=== PATIENT | female | born 1940 | race Caucasian/White ===

== ENCOUNTER → 2019-10-20 10:42 | Outpatient (BNVA) | payer MEDICARE, OTHER, SELFPAY | PROVIDERS: Family Provider Family Medicine; PCP Family Medicine; Visit Provider Specialist | DX: R20.0 Anesthesia of skin (principal) | CPT/HCPCS: 99214 ==

== ENCOUNTER 2020-03-07 08:22 | Outpatient (CLI) | payer MEDICARE, OTHER, SELFPAY ==
[2020-03-07 09:58] LABS: Valproic Acid Level 73.5 ug/mL (50-100)
== END 2020-03-07 08:23 | disposition home or self-care (01) ==
LOC: LAB 08:25
PROVIDERS: PCP Family Medicine; Visit Provider Specialist
DX: Z79.899 Other long term (current) drug therapy (principal)
CPT/HCPCS: 80164

== ENCOUNTER → 2020-04-24 08:50 | Outpatient (BNVA) | payer MEDICARE, OTHER, SELFPAY | PROVIDERS: PCP Family Medicine; Visit Provider Specialist | DX: G43.909 Migraine, unspecified, not intractable, without status migrainosus (principal); R56.9 Unspecified convulsions; Z86.73 Personal history of transient ischemic attack (TIA), and cerebral infarction without residual deficits | CPT/HCPCS: 99213 ==

== ENCOUNTER 2020-04-25 12:39 | Outpatient (CLI) | payer MEDICARE, OTHER, SELFPAY ==
--- NOTE | 2020-04-25 13:00 | MR_ITS ---
WS: [id number] MRI HEAD WITH CONTRAST TECHNIQUE: Sagittal T1, T2 axial, T2 axial FLAIR, axial susceptibility weighted imaging, axial diffus ion weighted images, and coronal T2 images were obtained. Pre and post-T1 axial and post T1 coronal i mages. ADC and FSPGR images. CLINICAL INFORMATION: seizures/TIA COMPARISON: MRI FINDINGS: No evidence of restricted diffusion to suggest acute ischemia. Ventricular system and basal cisterns are patent. Mild to moderate small vessel changes. Moderate parenchymal volume loss. Prominent periva scular spaces in the basal ganglia. Normal vascular flow voids at the skull base. No extra-axial flui d collections. Fluid within the right maxillary sinus consistent with sinusitis. Paranasal sinuses are otherwise wel l aerated. Mild mucosal thickening in the right greater than left mastoid air cells. Normal optic chi asm and pituitary infundibulum. Mild to moderate symmetric atrophy involving the temporal lobes and h ippocampal formations. Normal cavernous sinuses and Meckel's cave.No abnormal intracranial parenchymal enhancement. Normal d ural venous sinuses. Visualized orbits are normal. MR/MR head wo/w con [id number] IMPRESSION: 1. No evidence of restricted diffusion to suggest acute ischemia. 2. [id number] small vessel changes with moderate parenchymal volume loss . Small vessel changes appear stable since 2018. Minimal progression of the par enchymal volume loss. 3. Mild to moderate symmetric atrophy involving the temporal lobes and hippoca mpal formations. No signal abnormalities in the mesial temporal lobes. 4. No hemosiderin on susceptibly weighted images. 5. No abnormal gadolinium enhancement. 6. Right maxillary sinusitis. 7. No hemosiderin on susceptibly weighted images.
[2020-04-25 13:29] LABS: Blood Urea Nitrogen 14 mg/dL (8-23)
== END 2020-04-25 12:40 | disposition home or self-care (01) ==
LOC: RADSHAW 12:42
PROVIDERS: PCP Family Medicine; Visit Provider Specialist
DX: R56.9 Unspecified convulsions (principal); G45.9 Transient cerebral ischemic attack, unspecified; J32.0 Chronic maxillary sinusitis
CPT/HCPCS: 70553; 82565; 84520; A9579

== ENCOUNTER → 2020-10-25 08:11 | Outpatient (BNVA) | payer MEDICARE, OTHER, SELFPAY | PROVIDERS: PCP Family Medicine; Visit Provider Specialist | DX: R56.9 Unspecified convulsions (principal); F03.90 Unspecified dementia, unspecified severity, without behavioral disturbance, psychotic disturbance, mood disturbance, and anxiety | CPT/HCPCS: 96116; 99214 ==

== ENCOUNTER → 2021-09-25 09:42 | Outpatient (BNVA) | payer MEDICARE, OTHER, SELFPAY | PROVIDERS: PCP Family Medicine; Visit Provider Specialist | DX: R20.0 Anesthesia of skin (principal) | CPT/HCPCS: 99212 ==

== ENCOUNTER 2025-08-08 06:30 | Emergency (ER) | payer MEDICARE, SELFPAY ==
[2025-08-08 06:35] VITALS: BMI 25.6
--- NOTE | 2025-08-08 06:39 | CTR_ITS ---
PROCEDURE INFORMATION: Exam: CT Head Without Contrast Exam date and time: 08/08/2025 6:41 AM Age: 85 years old Clinical indication: Stroke-like symptoms; Left upper extremity and left lower extremity numbness/paresthesia; Additional info: Patient awoke this morning with numbness to left side of body. History of TIA. Last known well time of 2200 hours yesterday. TECHNIQUE: Imaging protocol: Computed tomography of the head without contrast. Radiation optimization: All CT scans at this facility use at least one of these dose optimization techniques: automated exposure control; mA and/or kV adjustment per patient size (includes targeted exams where dose is matched to clinical indication); or iterative reconstruction. Other technique: STROKE PROTOCOL was implemented. COMPARISON: MR head wo/w con [id number] 04/25/2020 1:18 PM RADIATION DOSE METRICS: Total DLP (mGy-cm): 1065.88 FINDINGS: Brain: Prominence of the sulci consistent with diffuse atrophy. No mass effect or midline shift. Periventricular and subcortical white matter low-attenuation consistent with chronic small vessel ischemic changes. Left basal ganglia and left thalamus small remote lacunar infarcts. No evidence of acute intracranial hemorrhage. Cerebral ventricles: Ventricular prominence proportional to sulci. No hydrocephalus. Paranasal sinuses: No significant or acute abnormality. No air-fluid levels. Mastoid air cells: No acute abnormality. No significant mastoid effusion. Bones: No acute osseous abnormality. No acute fracture. Soft tissues: No significant soft tissue abnormalities. CT/CT head thrombolytic [id number] IMPRESSION: Diffuse atrophy and chronic/remote ischemic changes without evidence of superimposed acute infarct, hemorrhage or mass-effect at this time. ASSESSMENT: ASPECTS ([place] Stroke Program Early CT Score) is 10.
--- NOTE | 2025-08-08 06:39 | ECG_ITS ---
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 Measurements Intervals [place] Rate: 75 P: 75 [place]: 141 QRS: -17 QRSD: 87 T: 61 QT: 367 QTc: 412 Interpretive Statements SINUS RHYTHM POSSIBLE LEFT ATRIAL ENLARGEMENT [-0.1mV P-WAVE IN V1/V2] Compared to ECG 06/01/2018 11:27:26 No significant changes Electronically Signed On 08-09-2025 21:37:28 SOUND TRUCK OPERATOR by Guerrero Caputo M.D. [email or web address]
--- NOTE | 2025-08-08 06:39 | W.ED.NEUROSD ---
HPI - Neuro Symptoms/Deficit General: Chief Complaint: Neuro Symptoms/Deficit Stated Complaint: left side is numb Time Seen by Provider: 08/08/25 06:37 Source: patient Mode of arrival: ambulatory Limitations: no limitations History of Present Illness: 85-year-old female states she had went to bed last night at 2200 states and when she woke up this morning she felt like she is having numbness all down her left side of her body. She denied having any weakness to me denies any slurred speech states that its improved slightly. Denies any headache denies any fevers denies any worsening improved factors. Related Data Home Medications ?Medication ?Instructions ?Recorded ?Confirmed alprazolam 0.25 mg tablet (Xanax) 0.125 mg PO .prn 10/20/19 09/25/21 aspirin 81 mg tablet,delayed 81 mg PO DAILY 10/20/19 09/25/21 release (Aspir-) calcium 600 mg (as 1 tab PO DAILY 10/20/19 09/25/21 carbonate)-vitamin D3 5 mcg (200 unit) tablet (Calcium 600 + D(3)) multivitamin 1 cap PO DAILY 10/20/19 09/25/21 omega-3 fatty acids 1,000 mg 1,000 mg PO DAILY 10/20/19 09/25/21 capsule (Fish Oil Concentrate) simvastatin 10 mg tablet 10 mg PO DAILY 10/20/19 09/25/21 vitamin B complex (Complex B-100 1 tab PO DAILY 10/20/19 09/25/21 tablet,extended release) Previous Rx's ?Medication ?Instructions ?Recorded gabapentin 600 mg tablet See Rx Instructions .Route 12/14/21 .COMPLEX #90 tabs Allergies Allergy/AdvReac Type Severity Reaction Status Date / Time No Known Allergies Allergy Verified 09/25/21 09:59 PFS ED PFSH: Family History Other CAD (coronary artery disease) Diabetes Hypertension Denies family history of Cancer Stroke Social History Smoking and tobacco/nicotine status: never used tobacco/nicotine Alcohol intake: never Substance/Drug Use: never NIH stroke score NIHSS: Level Of Consciousness - 1a: 0 Level Of Consciousness Questions - 1b: Both Correct Level Of Consciousness Commands - 1c: Both Correct Best Gaze - 2: Normal Visual Huggins - 3: No Visual Loss Facial Palsy - 4: Normal Motor Arm Right - 5: No Drift Motor Arm Left - 5: No Drift Motor Leg Right - 6: No Drift Motor Leg Left - 6: No Drift Limb Ataxia - 7: Absent Sensory - 8: Normal Best Language - 9: No Aphasia Dysarthia - 10: Normal Extinction And Inattention - 11: 0 Score: Total Score: 0 Physical Exam Const: COMMON NORMALS: patient oriented x3 HENMT: COMMON NORMALS: normocephalic and atraumatic HEAD & SCALP: normocephalic and atraumatic Neck/C-Spine: COMMON NORMALS: full ROM and supple Chest: COMMONS NORMALS: normal inspection of the chest Resp: COMMON NORMALS: normal respiratory effort, No retractions, No use of accessory muscles and clear to auscultation bilaterally AUSCULTATION: clear to auscultation bilaterally Cardio: COMMON NORMALS: regular rate, regular rhythm and No murmurs present (Cardio) RATE: regular rate RHYTHM: regular rhythm GI: COMMON NORMALS: Normal to inspection, nondistended, normoactive bowel sounds present, Soft to palpation, non-tender and no masses PALPATION: Yes Soft to palpation Extremity: COMMON NORMALS: normal to inspection and full ROM Neuro: COMMON NORMALS: patient oriented x3, moves all extremities and no focal motor deficits CRANIAL NERVES: Yes CN normal except as noted SPEECH: speech normal GAIT: Yes Normal gait present MOTOR EXAM: 5/5 motor strength present throughout Psych: COMMON NORMALS: mental status grossly normal, Normal thought process present and cooperative THOUGHT PROCESS: Normal thought process present Skin: COMMON NORMALS: no rashes or lesions noted and no wounds GENERAL SKIN EXAM: no rashes or lesions noted Course Vital Signs: Vital signs: Vital Signs Temperature 97.5 F L 08/08/25 06:42 Pulse Rate 76 08/08/25 07:37 Respiratory Rate 18 08/08/25 07:19 Blood Pressure 185/73 08/08/25 07:37 Pulse Oximetry 98 08/08/25 07:37 Oxygen Delivery Me thod Room Air 08/08/25 07:19 MDM - Neuro Symptoms/Deficit Medical Decision Making 85-year-old female presenting here with some paresthesias to her left side on exam has no decreased sensation. Differential includes TIA, CVA, hemorrhage. Her head CT here is normal shows no signs of hemorrhage her NIH here was 0. Did have some hypertension here does have a history of hypertension takes losartan at home. I did offer her admission for stroke rule out she states she feels improved and does not want to be admitted this time. I informed her she needs to follow-up her PCP in 3 to 5 days if she has any worsening symptoms she is to return she understands agrees to plan. Labs showed no significant abnormality. EKG interpreted by me at 0654 normal sinus rhythm heart rate [address] elevation QRS 87 QTc 396 Medical Records I reviewed the patient's medical records. Lab Data I reviewed the patient's lab results. 08/08/25 06:50 08/08/25 06:[address] 08/08/25 06:39 IMPRESSION: Diffuse atrophy and chronic/remote ischemic changes without evidence of superimposed acute infarct, hemorrhage or mass-effect at this time. ASSESSMENT: ASPECTS ([place] Stroke Program Early CT Score) is 10. ADDENDUM: 08/08/25657 Results were discussed with DARREN Brower at 6:57 AM GALLERY OR MUSEUM CURATOR 08/08/2025. Laboratory Results WBC 9.42 10^3/uL (3.29-11.43) 08/08/25 06:50 RBC 4.90 10^6/uL (3.85-5.65) 08/08/25 06:50 Hgb 14.00 g/dL (11.27-16.99) 08/08/25 06:50 Hct 42.8 % (36-47) 08/08/25 06:50 MCV 87.3 fl (85-98) 08/08/25 06:50 MCH 28.6 pg (27-33) 08/08/25 06:50 MCHC 32.7 g/dL (30-55) 08/08/25 06:50 RDW 13.1 % (12.1-15.1) 08/08/25 06:50 Plt Count 306 10^3/cmm (157-399) 08/08/25 06:50 MPV 10.5 fL (7.4-10.4) H 08/08/25 06:50 Neut % (Auto) 42.4 % 08/08/25 06:50 Lymph % (Auto) 46.6 % 08/08/25 06:50 Morrill % (Auto) 6.7 % 08/08/25 06:50 Eos % (Auto) 3.7 % 08/08/25 06:50 Baso % (Auto) 0.5 % 08/08/25 06:50 Neut # (Auto) 3.99 10^3/uL (1.8-7.7) 08/08/25 06:50 Lymph # (Auto) 4.4 10^3/uL (0.8-4.8) 08/08/25 06:50 Morrill # (Auto) 0.6 10^3/uL (0.2-0.9) 08/08/25 06:50 Eos # (Auto) 0.4 10^3/uL (0.0-0.8) 08/08/25 06:50 Baso # (Auto) 0.1 10^3/uL (0.0-0.1) 08/08/25 06:50 Nucleated RBC % (auto) 0 % 08/08/25 06:50 Nucleated RBCs # 0.0 /100WBC 08/08/25 06:50 PT 13.30 SECONDS (12.1-14.9) 08/08/25 06:50 INR 0.94 (0.8-1.2) 08/08/25 06:50 APTT 28.1 SECONDS (23.9-36.7) 08/08/25 06:50 Sodium 140 mmol/L (136-145) 08/08/25 06:50 Potassium 3.7 mmol/L (3.5-5.1) 08/08/25 06:50 Chloride 101 mmol/L (98-107) 08/08/25 06:50 Carbon Dioxide 30 mmol/L (22-29) H 08/08/25 06:50 Anion Gap 12.7 (5-19) 08/08/25 06:50 BUN 11 mg/dL (8-23) 08/08/25 06:50 Creatinine 0.7 mg/dL (0.5-0.9) 08/08/25 06:50 GFR Calculation Not Reportable 08/08/25 06:50 Glucose 103 mg/dL (65-115) 08/08/25 06:50 POC Glucose 95 mg/dL (70-110) 08/08/25 06:47 Calculated Osmolality 290 mOsm/kg (285-295) 08/08/25 06:50 Calcium 9.8 mg/dL (8.5-10.5) 08/08/25 06:50 Total Bilirubin 0.6 mg/dL (0.15-1.2) 08/08/25 06:50 AST 19 U/L (0-32) 08/08/25 06:50 ALT 10 U/L (0-33) 08/08/25 06:50 Alkaline Phosphatase 81 U/L (35-105) 08/08/25 06:50 Total Protein 8.0 g/dL (6.6-8.7) 08/08/25 06:50 Albumin 4.4 g/dL (3.5-5.2) 08/08/25 06:50 Globulin 3.6 g/dL (1.3-4.6) 08/08/25 06:50 Amorphous Sediment Not Reportable 08/08/25 07:10 Urine Opiates Screen Negative ng/mL (Negative) 08/08/25 07:10 Ur Barbiturates Screen Negative ng/mL (Negative) 08/08/25 07:10 Ur Phencyclidine Scrn Negative ng/mL (Negative) 08/08/25 07:10 Ur Amphetamines Screen Negative ng/mL (Negative) 08/08/25 07:10 U Benzodiazepines Scrn Negative ng/mL (Negative) 08/08/25 07:10 Urine Cocaine Screen Negative ng/mL (Negative) 08/08/25 07:10 U Marijuana (THC) Screen Negative ng/mL (Negative) 08/08/25 07:10 All radiology interpretation(s) finalized by discharge EKG Data EKG 1: I personally reviewed and interpreted this EKG as follows: EKG interpretation date: 08/08/25 EKG interpretation time: 06:54 Interpretation: EKG interpreted by me at 0654 normal sinus rhythm heart rate [address] elevation QRS 87 QTc 396 Discharge Plan Discharge Patient Disposition: Home Clinical Impression: Paresthesias Condition: Stable Prescriptions: No Action simvastatin 10 mg tablet 10 mg PO DAILY multivitamin Capsule 1 cap PO DAILY calcium carbonate-vitamin D3 [Calcium 600 + D(3)] 600 mg(1,500mg) -200 unit tablet 1 tab PO DAILY omega-3 fatty acids [Fish Oil Concentrate] 1,000 mg capsule 1,000 mg PO DAILY aspirin [Aspir-81] 81 mg tablet,delayed release (DR/EC) 81 mg PO DAILY Complex B-100 Tablet Extended Release 1 tab PO DAILY alprazolam [Xanax] 0.25 mg tablet 0.125 mg PO .prn gabapentin 600 mg tablet See Rx Instructions .ROUTE .COMPLEX Qty: 90 0RF Dose Instruction: TAKE 1 TABLET BY MOUTH THREE TIMES DAILY Rx Instructions: TAKE 1 TABLET BY MOUTH THREE TIMES DAILY Discharge Orders: Discharge ED (Routine); Ordered 08/08/25 Ordered By: Darren Panda Referrals: Jose Sanchez MD [Primary Care Provider, Family Practice] - 4-7 days Discharge Diet: Advance as tolerated Discharge Activity: Resume usual activity Patient Instructions: Paresthesia (ED) Print Language: Persian Coding Level of Care Code ED Mobile Lab Technician for Jj Danielle
[2025-08-08 06:42] VITALS: BP 203/84; PULSE 85; RESP 18; TEMP 36.4; O2SAT 97
--- OUTSIDE RECORDS SUMMARY | 2025-08-08 06:47 | XMS_ITS | Data Portability ---
Author Organization [facility], [facility], [facility] Address [address] [address] Care Team Providers Care Department Chair Name Role Phone LENCHO SANCHEZ Primary Care Provider Unavailabl e Assessment No assessment recorded. Plan of Treatment Reminders Order Date Submit Date Provider Last Modified By Organization Details Last Modified Time Details Appointments RECHECK 15 2025 09:00A Ching Sanchez MD Not available Not available Not available Lab None recorded . Referral None recorded . Procedures arthroce ntesis, aspirati on and/or injectio n, major joint or bursa (PROC) [email or web address] [facility], [address] [place] [address], [id number], 05/30/2025 16:36:05 arthroce ntesis, aspirati on and/or injectio n, major joint or bursa (PROC) [id number] [facility], [address] [place] [address], [id number], 04/02/2025 03:53:36 Surgeries None recorded . Imaging None recorded . Medication Orders betameth asone acetate and sodium phos 6 mg/mL suspensi on for injectio n 2024 025 [email or web address] Not available 07/29/2025 15:02:01 fluticas one propiona te 50 mcg/actu ation nasal spray,thompson spension 2024 025 [facility], [address] [place] [address], [address], 02/24/2025 14:18:46 Medrol (Terell) 4 mg tablets in a dose pack [address], [address], 05/30/2025 12:04:40 betameth asone acetate and sodium phos 6 mg/mL suspensi on for injectio n 2024 025 [email or web address] Not available 07/29/2025 15:02:01 losartan 50 mg tablet [address], [address], 05/20/2025 10:18:23 simvasta tin 10 mg tablet [address], [address], 07/13/2025 12:12:14 Patient TargetsNo targets recorded. Patient InstructionsNo instructions recorded. Reason for Referral None Reported. Results Created Date Observation Date Name Description Value Unit Range Abnormal Flag Note LastModifiedBy Organization Detail LastModifiedTime 01/20/2001/19/2025 CBC WBC 6.7 x10 4.0-10 .5 Not Available [facility] [address], [place], [address], 01/19/2025 10:55:30 01/20/20 25 01/19/2025 CBC RBC 4.80 x10 3.50-5 .50 Not Available [facility] [address], [place], [address], 01/19/2025 10:55:30 01/20/20 25 01/19/2025 CBC HGB 14.1 g/dL 12.0-1 6.0 Not Available [facility] [address], [place], [address], 01/19/2025 10:55:30 01/20/20 25 01/19/2025 CBC HCT 43.6 % 37.0-4 7.0 Not Available [facility] [address] [facility] [address], [place], [address], 01/19/2025 10:55:30 01/20/20 25 01/19/2025 CBC MCV 90.9 fL 80.0-9 9.9 Not Available [facility] [address] [facility] [address], [place], [address], 01/19/2025 10:55:30 01/20/20 25 01/19/2025 CBC MCH 29.3 pg 27.0-3 2.0 Not Available [facility] [address] [facility] [address], [place], [address], 01/19/2025 10:55:30 01/20/2001/19/2025 CBC MCHC 32.2 g/dL 32.0-3 6.0 Not Available [facility] [address] [facility] [address], [place], [address], 01/19/2025 10:55:30 01/20/2001/19/2025 CBC RDW 14.0 % 11.5-1 4.5 Not Available [facility] [address] [facility] [address], [place], [address], 01/19/2025 10:55:30 01/20/20 25 01/19/2025 CBC plt 240.9 x10 140.0- 451.0 Not Available [facility] [address] [facility] [address], [place], [address], 01/19/2025 10:55:30 01/20/20 25 01/19/2025 CBC lymphocytes % 41.6 % 20.0-5 0.0 Not Available [facility] [address] [facility] [address], [place], [address], 01/19/2025 10:55:30 01/20/20 25 01/19/2025 CBC granulcytes % 46.5 % 30.0-7 0.0 Not Available [facility] [address] [facility] [address], [place], [address], 01/19/2025 10:55:30 01/20/20 25 01/19/2025 CBC monocytes % 7.5 % 2.0-16 .0 Not Available [facility] [address] [facility] [address], [place], [address], 01/19/2025 10:55:30 01/20/20 25 01/19/2025 CBC granulcytes# 3.1 x10 Not Sinai [facility] [address] [facility] [address], [place], [address], 01/19/2025 10:55:30 01/20/20 25 01/19/2025 CBC lymphocytes # 2.8 x10 Not Available [facility] [address] [facility] [address], [place], [address], 01/19/2025 10:55:30 01/20/20 25 01/19/2025 CBC monocytes # 0.5 x10 Not Avai lable [facility] [address] [address], [place], [address], 01/19/2025 10:55:30 01/20/20 25 01/19/2025 CMP (FEMA LE) glucose 94.0 mg/dL 60.0-9 9.0 Not Available [facility] [address] [address], [place], [address], 01/19/2025 12:07:32 01/20/2001/19/2025 CMP (FEMA LE) BUN (blood urea nitrogen) 20.0 mg/dL 10.0-2 6.0 Not Available [facility] [address] [facility] [address], [place], [address], 01/19/2025 12:07:32 01/20/2001/19/2025 CMP (FEMA LE) creatinine (serum) 0.8 mg/dL 0.4-1. 5 Not Available [facility] [address] [facility], [place], [address], 01/19/2025 12:07:32 01/20/2001/19/2025 CMP (FEMA LE) BUN/creatini ne ratio 25.00 ratio Not Available [facility] [address] [facility], [place], [address], 01/19/2025 12:07:32 01/20/2001/19/2025 CMP (FEMA LE) eGFR calculated 72.6 Not Available [facility] [address] [facility], [place], [address], 01/19/2025 12:07:32 01/20/2001/19/2025 CMP (FEMA LE) total protein 7.5 g/dL 6.0-8. 5 Not Available [facility] [address] [facility] 1, [place], [address], 01/19/2025 12:07:32 01/20/2001/19/2025 CMP (FEMA LE) total bilirubin 0.8 mg/dL 0.2-1. 3 Not Available [facility] [address] [facility], [place], [address], 01/19/2025 12:07:32 01/20/2001/1901/19/2025 CMP (FEMA LE) albumin 4.4 g/dL 3.5-5. 5 Not Available [facility] [address] [place] [facility], [place], [address], 01/19/2025 12:07:32 01/20/20 25 01/19/2025 CMP (FEMA LE) globulin 3.1 calc Not Available [facility] [address] [facility] 1, [place], [address], 01/19/2025 12:07:32 01/20/20 25 01/19/2025 CMP (FEMA LE) AST (SGOT) 24.0 U/L 0.0-46 .0 Not Available [facility] [address] [facility] 1, [place], [address], 01/19/2025 12:07:32 01/20/20 25 01/19/2025 CMP (FEMA LE) altv (SGPT) 20.0 U/L 13.0-6 9.0 normal Not Available [facility] [address] [facility], [place], [address], 01/19/2025 12:07:32 01/20/20 25 01/19/2025 CMP (FEMA LE) A/G ratio 1.4 ratio Not Available [facility] [address] [facility] 1, [place], [address], 01/19/2025 12:07:32 01/20/20 25 01/19/2025 CMP (FEMA LE) ALP phos 55.0 U/L 30.0-1 40.0 normal Not Available [facility] [address], [place], [address], 01/19/2025 12:07:32 01/20/20 25 01/19/2025 CMP (FEMA LE) calcium 9.4 mg/dL 8.4-10 .5 Not Available [facility] [address] [facility] [address], [place], [address], 01/19/2025 12:07:32 01/20/2001/19/2025 CMP (FEMA LE) sodium 140.0 mmol/ L 136.0- 145.0 Not Available [facility] [address] [place] [facility], [place], [address], 01/19/2025 12:07:32 01/20/2001/19/2025 CMP (FEMA LE) potassium 4.1 mmol/ L 3.5-5. 1 Not Available [facility] [address] [place] [address], [place], [address], 01/19/2025 12:07:32 01/20/2001/19/2025 CMP (FEMA LE) chloride 103.0 mmol/ L 98.0-1 10.0 normal Not Available [facility] [address] [place] [address], [place], [address], 01/19/2025 12:07:32 01/20/2001/19/2025 CMP (FEMA LE) C02 30.0 mmol/ L 22.0-3 1.0 Not Available [facility] [address] [place] [facility], [place], [address], 01/19/2025 12:07:32 01/20/2001/19/2025 CMP (FEMA LE) anion gap 7.0 calc Not Available [facility] [address] [place] [facility], [place], [address], 01/19/2025 12:07:32 01/20/2001/19/2025 CMP (FEMA LE) osmolality 291.4 calc Not Available [facility] [address] [place] [address], [place], [address], 01/19/2025 12:07:32 01/20/20 25 01/19/2025 LIPID PROFI LE (FEMA LE) cholesterol 171.0 mg/dL 0.0-20 0.0 Not Available [facility] [address] [facility] 1, [place], [address], 01/19/2025 12:07:44 01/20/20 25 01/19/2025 LIPID PROFI LE (FEMA LE) trig 118.0 mg/dL 0.0-15 0.0 Not Available [facility] [address] [facility] 1, [place], [address], 01/19/2025 12:07:44 01/20/20 25 01/19/2025 LIPID PROFI LE (FEMA LE) HDL - direct 52.0 mg/dL >40.0 Not Available [facility] [address] [facility] 1, [place], [address], 01/19/2025 12:07:44 01/20/20 25 01/19/2025 LIPID PROFI LE (FEMA LE) VLDL - direct 23.6 mg/dL Not Available [facility] [address] [address], [place], [address], 01/19/2025 12:07:44 01/20/20 25 01/19/2025 LIPID PROFI LE (FEMA LE) LDL - direct 95.4 mg/dL 0.0-13 0.0 Not Available [facility] [address] [facility] 1, [place], [address], 01/19/2025 12:07:44 01/20/2001/19/2025 TSH TSH 1.36 uIU/m L 0.49-3 .82 normal Not Available [facility] [address] [address], [place], [address], 01/19/2025 12:13:10 Result Notes None recorded. Problems Name Problem SNOMED Code Status Onset Date Resolution Date Notes Provider Name and Address Organization Details Recorded Time Osteopenia 966902434 Active 2021 Osteope sandra; Hips (BMD 2001).; 022 1:17PM by Mahesh Montalvo, Office Visit; Promote d; acuity set as *; MAHESH mccollum [facility] 5 12:50:58 Hyperlipid emia 61174929 Active 2022 [facility] 12:51:05 Labyrinthi tis 30872883 Active 2022 [facility] 5 12:50:58 Generalize d anxiety disorder 01830723 Active 2023 [facility] 12:50:58 Actinic keratosis 375074473 Active 2023 MAHESH MONTALVO [facility] 5 12:50:58 Essential hypertensi on 05025054 Active 2024 [facility] 5 12:50:58 Bursitis of right shoulder 7064860721963 07 Active 2024 Lencho Sanchez MD [address] [place] [address], [phone], [facility] 5 15:44:38 Dysfunctio n of right eustachian tube 1185743864812 101 Active 2024 Rubin Lockett MD [address] [place] [address], [phone], [facility] 5 13:58:37 Problem Notes None recorded. Procedures Surgical History Date Name Laterality Status Provider Name and Address Organization Details Recorded Time 5 Joint Inj Beta-shoulde r, hip, knee completed Lencho Sanchez MD [address] [place], [address], [facility] 05/30/2025 12:33:15 5 Cerumen Removal-Inst rumentation completed BRAYDON OSUNA [address] [place] [address], [phone], [facility] 02/23/2025 16:19:42 5 Joint Inj Beta-shoulde r, hip, knee completed Lencho Sanchez MD [address] [place], [address], [facility] 01/26/2025 15:45:27 Imaging Results None recorded. Procedure Notes None recorded. Medical Equipment None Reported. Allergies No known drug allergies Medications Name Sig Start Date Stop Date Status Note LastModified by Organization Details LastModified Time losartan 50 mg tablet TAKE 1 TABLET BY MOUTH EVERY DAY active Not Available Not Available No t Available simvastat in 10 mg tablet TAKE 1 TABLET BY MOUTH EVERY DAY active Not Available Not Available No t Available betametha sone acetate and sodium phos 6 mg/mL suspensio n for injection Take 6 mg every day by injectio n route for 1 day. 07/29 completed Not Available Not Available Not Available alprazola m 0.25 mg tablet take 1/2 tablet BY MOUTH THREE TIMES DAILY NEEDED active Not Available Not Available No t Available methylpre dnisolone 4 mg tablets in a dose pack Take as directed on package for 6 days 05/30 completed Not Available Not Available Not Available losartan 100 mg tablet Take 1 tablet every day by oral route for 90 days. 2024 active Not Available Not Available Not Avai lable fluticaso ne propionat e 50 mcg/actua tion nasal spray,adriane pension instill ONE SPRAY IN EACH NOSTRIL EVERY DAY active Not Available Not Available No t Available loratadin e active Not Available Not Available Not Available Aspirin EC daily 2017 active Recorded 11/14/19 19 9:39AM by Janel Chandler LPN, Office Visit; Refill Quantity : 30; Tablet; Not Available Not Available Not Available alprazola m three times daily, as needed 07/23 completed Recorded 07/09/20 21 10:02AM by Lencho Sanchez MD, Office Visit; Refill Quantity : 45; Tablet; Not Available Not Available Not Available Centrum Silver daily active 0; Recorded 07/22/20 22 1:17PM by Mahesh Montalvo, Office Visit; Not Available Not Available Not Available gabapenti n three times daily 07/23 completed weaning off, currentl y at 1/2 tablet BID; Recorded 01/08/20 22 10:02AM by Debbie andre, Office Visit; Refill Quantity : 90; Tablet; Not Available Not Available Not Available Vitamin B-Complex QD active Recorded 12/31/19 07 9:57AM by Edith Thorpe, RN, Office Visit; Refill Quantity : 0; Not Available Not Available Not Available Calcium+D BID active Recorded 12/31/19 07 9:57AM by Edith Thorpe, RN, Office Visit; Refill Quantity : 0; Not Available Not Available Not Available [place]-3 Fish Oil active Recorded 11/22/19 09 1:35PM by Edith Thorpe, RN, Office Visit; Not Available Not Available Not Available Vitals Date Recorded Body height Body mass index (BMI) Body weight Heart rate Oxygen saturation Body temperature Systolic And Diastolic Provider Name and Address Organization Details Last Updated DateTime 5 159.39 cm 24.5 kg/m2 85597.1 5 g 80 /min 96 % 98.2 [degF] 152/68 mm[Hg] DEBBIE PORRAS [facility] 5 14:56:00 Date Recorded Body height Body mass index (BMI) Body weight Oxygen saturation Heart rate Body temperature Systolic And Diastolic Provider Name and Address Organization Details Last Updated DateTime 5 159.39 cm 25 kg/m2 42444.6 3 g 96 % 100 /min 98.5 [degF] 142/56 mm[Hg] Alison Cruz [facility] 5 10:36:00 Date Recorded Body height Body mass index (BMI) Body weight Oxygen saturation Heart rate Respiratory rate Body temperature Systolic And Diastolic Provider Name and Address Organization Details Last Updated DateTime 5 159.39 cm 25 kg/m2 81931.9 3 g 96 % 88 /min 16 /min 98.9 [degF] 150/80 mm[Hg] Cecy Burns [facility] 5 13:31:03 Date Recorded Body height Body mass index (BMI) Body weight Oxygen saturation Heart rate Systolic And Diastolic Provider Name and Address Organization Details Last Updated DateTime 5 159.39 cm 25 kg/m2 72254.9 3 g 93 % 86 /min 132/60 mm[Hg] MAHESH MONTALVO [facility] 5 11:55:28 Date Recorded Body height Body mass index (BMI) Body weight Heart rate Systolic And Diastolic Systolic And Diastolic Provider Name and Address Organization Details Last Updated DateTime 5 159.39 cm 25.2 kg/m2 01185.5 2 g 80 /min 170/80 mm[Hg] 180/88 mm[Hg] DEBBIE PORRAS [facility] 5 15:05:20 Social History Question Answer Notes LastModified by [employer] Details LastModified Time Tobacco Smoking Status Never Smoker MAHESH mccollum [facility] 01/21/2023 15:54:29 What Was The Date Of Your Most Recent Tobacco Screening? 07/29/2025 [email or web address] Information not available 07/29/2025 Sex: Unknown Functional Status Question Answer Note LastModified by [employer] Details LastModified Time Do you use any illicit or recreational drugs? No [email or web address] Information not available 01/21/2023 What is your level of alcohol consumption? None [email or web address] Information not available 01/21/2023 Mental Status None recorded. Family History Relationship Description Onset Age of this Age Resolved Age Notes LastModified by Organization Details LastModified Time Father Heart disease [email or web address] Not available 01/26 15:00:43 Medical History No medical history recorded. Gynecological HistoryNo gynecological history recorded. Obstetrics History GPAL:G 0 P 0 0 0 0 Immunizations Vaccine Type Date Status Note Provider Nam e and Address Organization Details Recorded Time Influenza, adjuvanted, quadrivalent, PF 3 completed Not Available [facility] 07/29/2025 14:34:09 COVID-19, mRNA, LNP-S, PF, kashif-sucrose, 30 mcg/0.3 mL 3 completed Not Available [facility] 07/29/2025 14:34:09 Influenza, high-dose, trivalent, PF 4 completed Not Available [facility] 07/29/2025 14:34:09 COVID-19, mRNA, LNP-S, PF, kashif-sucrose, 30 mcg/0.3 mL 4 completed Not Available [facility] 07/29/2025 14:34:09 COVID-19, mRNA, LNP-S, PF, kashif-sucrose, 30 mcg/0.3 mL 5 completed Not Available [facility] 07/29/2025 14:34:09 Influenza, split virus, trivalent, PF 5 completed Not Available [facility] 07/29/2025 14:34:09 Influenza, high-dose, quadrivalent, PF 2 [facility] 01/21/2023 15:53:42 COVID-19, mRNA, LNP-S, PF, 30 mcg/0.3 mL dose 1 completed [facility] 01/21/2023 15:53:42 COVID-19, mRNA, LNP-S, PF, 30 mcg/0.3 mL dose 1 completed MAHESH mccollum [facility] 01/21/2023 15:53:42 COVID-19, mRNA, LNP-S, PF, 30 mcg/0.3 mL dose 1 completed MAHESH MONTALVO null, [facility] 01/21/2023 15:53:42 COVID-19, mRNA, LNP-S, PF, 30 mcg/0.3 mL dose, kashif-sucrose 2 completed MAHESH MONTALVO null, [facility] 01/21/2023 15:53:42 COVID-19, mRNA, LNP-S, bivalent, PF, 30 mcg/0.3 mL dose 2 completed MAHESH MONTALVO null, [facility] 01/21/2023 15:53:42 Pneumococcal conjugate PCV 13 0 completed MAHESH MONTALVO null, [facility] 01/21/2023 15:53:42 Influenza, high-dose, trivalent, PF 7 completed MAHESH MONTALVO null, [facility] 01/21/2023 15:53:42 Influenza, high-dose, trivalent, PF 6 completed MAHESH MONTALVO null, [facility] 01/21/2023 15:53:42 Influenza, high-dose, trivalent, PF 9 completed MAHESH MONTALVO null, [facility] 01/21/2023 15:53:42 Influenza, high-dose, trivalent, PF 8 completed MAHESH MONTALVO null, [facility] 01/21/2023 15:53:42 Influenza, split virus, trivalent, preservative 4 completed MAHESH MONTALVO null, [facility] 01/21/2023 15:53:42 Influenza, split virus, trivalent, PF 5 completed MAHESH MONTALVO null, [facility] 01/21/2023 15:53:42 Influenza, split virus, quadrivalent, PF 1 completed MAHESH MONTALVO [facility] 01/21/2023 15:53:42 Influenza, split virus, trivalent, preservative 2 completed Not Available [facility] 03/22/2023 02:17:51 Influenza, split virus, trivalent, preservative 1 completed Not Available [facility] 03/22/2023 02:17:51 Past Encounters Encounter ID Performer Location Encounter Start Date Encounter Closed Date Diagnosis/Indication Diagnosis SNOMED-CT Code Diagnosis ICD10 Code Diagnosis IMO Codes Diagnosis Note [id number] Lencho Sanchez MD [facility] [address] [place] [address] 5 01/21/2023 15:47:09 01/21/2023 18:39:18 Hyperlipidemia 24524349 E78.5 Labyrinthitis 54303399 H 83.03 [id number] Lencho Sanchez MD [facility] [address] [place] [address] 5 07/23/2023 09:25:22 07/23/2023 13:01:41 Labyrinthitis 75778648 H83.03 doing welll with this. Hyperlipidemia 56548482 E78.5 [id number] Lencho Sanchez MD [facility] [address] [place] [address] 5 01/23/2024 09:23:25 01/23/2024 10:10:04 Labyrinthitis 72539197 H83.03 doing well with this. Hyperlipidemia 36245781 E78.5 Generalize d anxiety disorder 93004822 F41.1 [id number] Lencho Sanchez MD [facility] [address] [place] [address] 5 07/27/2024 14:34:45 07/29/2024 10:30:33 Generalized anxiety disorder 37881837 F41.1 Osteopenia 220460218 M85 .80 Hyperlipidemia 89966600 E78.5 Actinic keratosis 233716 007 L57.0 tip of nose. [id number] Lencho Sanchez MD [facility] [address] [place] [id number] 01/19/2025 09:59:15 01/20/2025 09:46:12 Essential hypertension 80680755 I10 Hypercholesterolemia 136 83610 E78.00 Generalize d anxiety disorder 54770494 F41.1 [id number] Lencho Sanchez MD [facility] [address] [place] [id number] 01/26/2025 14:41:06 01/27/2025 14:43:20 Generalized anxiety disorder 63178087 F41.1 Osteopenia 044834170 M85 .80 Hyperlipidemia 49693237 E78.5 Essential hypertension 09474076 I10 Bursitis o f right shoulder 7243172253 72413 M75.51 [id number] BRAYDON OSUNA [facility]) [address] [place], [place] [address] 02/23/2025 10:26:40 02/23/2025 16:33:58 Impacted cerumen in right ear 0478532897 409281 H61.21 5918763 Cerumen impaction cleared today. After the pt's ear pain resolved. No further changes today. Rest of exam was normal today.Retu rn if symptoms worsen or concerns arise. [id number] Rubin Lockett MD [facility] [address] [place] [id number] 02/24/2025 13:21:51 02/28/2025 15:53:21 Dysfunction of right eustachian tube 3096406067 485054 H69.91 [id number] Middle ear fluid without significan t signs of infection. Recommend a combinatio n of oral steroids and nasal steroids. [id number] Lencho Sanchez MD [facility] [address] [place] [id number] 05/30/2025 11:20:04 05/30/2025 12:34:35 Bursitis of right shoulder 8727069332 41002 M75.51 [id number] Lencho Sanchez MD [facility] [address] [place] [id number] 07/29/2025 14:33:00 07/29/2025 15:43:47 Generalized anxiety disorder 96917278 F41.1 A little added stress as a close friend this AM. Bursitis o f right shoulder 5250153645 01344 M75.51 [id number] Doing much better. Osteopenia 185292909 M85 .80 Hyperlipidemia 80834428 E78.5 Essential hypertension 66638204 I10 BP elevated a little due to stress. She will monitor this at home and let us know if it remains high. Health Concerns Section Related Observation LastModified by Organization Detai ls LastModified Time None Recorded Concern Status LastModified by Organization Details LastModified Time None Recorded Advance Directives Directive None Recorded Payers Insurance Date Sequence Insurance Name Policy Number Policy Roberts Covered Member ID Roberts Member ID Guarantor Name 01/26/2025 1 [employer] (MEDICARE SUPPLEMENT) Nirmala A Rico [id number] Nirmala A Rico 01/26/2025 1 [place] Nirmala A Rico [id number] Nirmala A Rico 01/26/2025 [place] - [place] A - [facility] (MEDICARE) Nirmala A Rico [id number] Nirmala A Rico 01/26/2025 1 [employer] (MEDICARE REPLACEMENT/A DVANTAGE - PPO) [id number] Nirmala A Rico [id number] Nirmala A Rico 01/26/2025 1 [employer] OF [place] Nirmala A Rico [id number] Nirmala A Rico 01/26/2025 1 [employer] (MEDICARE REPLACEMENT/A DVANTAGE - PPO) Nirmala A Rico [id number] Nirmala A Rico 08/01/2025 1 [facility] (MEDICARE REPLAC[facility]/A DVANTAGE - HMO) [id number] Nirmala A Rico [id number] Nirmala A Rico Notes Date Note Type Note Provider Name and Address Organization Details Recorded Time text/html Hypertension IM/FMReported by PatientHPIFor associated symptoms, patient reportsfatiguebut reportsno shortness of breath,no palpitations, andno decline in exercise capacity. For quality, patient reportshere for check-up. For alleviating factors, patient reportsmedication. HyperlipidemiaReported by PatientHPIFor adherence to treatment plan, patient reportstakes medications as prescribed. Lencho Sanchez MD [address] [place] [address], [phone], [facility] 01/26/2025 15:48:34 5 text/html ROS as noted in the HPI walk inPt states she developed chills and right ear pain yesterday. [place] feverish this morning. Denies sinus pressure but has some mild runny nose. Started taking an otc sinus medication. Is eating/drinking well. BRAYDON OSUNA [address] [place] [address], [phone], [facility] 02/23/2025 16:20:37 5 text/html FeverReported by PatientROS as noted in the HPI walk in patientpatient was here yesterday for right ear pain and sinus problems. Patient said her right ear is still hurting and her fever last night was 100.4. Rubin Lockett MD [address] [place] [address], [phone], [facility] 02/27/2025 16:36:40 5 text/html Still having right shoulder pain. Lencho Sanchez MD [address] [place] [address], [phone], [facility] 05/30/2025 12:34:12 5 text/html HyperlipidemiaReported by PatientHPIFor adherence to treatment plan, patient reportstakes medications as prescribed. Hypertension IM/FMReported by PatientHPIFor quality, patient reportshere for check-up. For alleviating factors, patient reportsmedication. For associated symptoms, patient reportsno shortness of breath,no fatigue,no palpitations,no decline in exercise capacity, andexertional dyspnea. Lencho Sanchez MD [address] [place] [address], [phone], [facility] 07/29/2025 15:21:17 OBGyn Episode No OBEpisode recorded.
--- OUTSIDE RECORDS SUMMARY | 2025-08-08 06:47 | XMS_ITS | Continuity of Care Document ---
Author Organization [facility], LMaliaLJim, [facility] ([facility]) Address [address] [place] [address] Care Team Providers Care Dot Net Developer Name Role Phone LENCHO SANCHEZ Primary Care Provider Unavailabl e Assessment No assessment recorded. Plan of Treatment Reminders Order Date Submit Date Provider Last Modified By Organization Details Last Modified Time Details Appointments RECHECK 15 2025 09:00A Ching Sanchez MD Not available Not available Not available Lab None recorded . Referral None recorded . Procedures None recorded . Surgeries None recorded . Imaging None recorded . Medication Orders None recorded . Patient TargetsNo targets recorded. Patient InstructionsNo instructions recorded. Reason for Referral None Reported. Problems Name Problem SNOMED Code Status Onset Date Resolution Date Notes Provider Name and Address Organization Details Recorded Time Osteopenia 301632507 Active 2021 Osteope sandra; Hips (BMD 2001).; 022 1:17PM by Mhaesh Montalvo, Office Visit; Promote d; acuity set as *; MAHESH mccollum [facility] 12:50:58 Hyperlipid emia 02229087 Active 2022 MAHESH mccollum [facility] 12:51:05 Labyrinthi tis 92610842 Active 2022 MAHESH mccollum [facility] 12:50:58 Generalize d anxiety disorder 48841168 Active 2023 MAHESH mccollum [facility] 12:50:58 Actinic keratosis 033469830 Active 2023 MAHESH mccollum [facility] 12:50:58 Essential hypertensi on 46122502 Active 2024 MAHESH PAEZRIS chun [facility] 12:50:58 Bursitis of right shoulder 0534090360432 07 Active 2024 Lencho Sanchez MD [address] [place] [address], [phone], [facility] 15:44:38 Dysfunctio n of right eustachian tube 2580060310793 101 Active 2024 Rubin Lockett MD [address] [place] [address], [phone] , [facility] 13:58:37 Problem Notes None recorded. Procedures Surgical History Date Name Laterality Status Provider Name and Address Organization Details Recorded Time 5 Joint Inj Beta-shoulde r, hip, knee completed Lencho Sanchez MD [address] [place] [address], [phone], [facility] 05/30/2025 12:33:15 5 Cerumen Removal-Inst rumentation completed BRAYDON OSUNA [address] [place] [address], [phone], [facility] 02/23/2025 16:19:42 5 Joint Inj Beta-shoulde r, hip, knee completed Lencho Sanchez MD [address] [place] [address], [phone], [facility] 01/26/2025 15:45:27 Imaging Results None recorded. [...] active Recorded 12/31/19 07 9:57AM by Edith Thorpe RN, Office Visit; Refill Quantity : 0; Not Available Not Available Not Available Calcium+D BID active Recorded 12/31/19 07 9:57AM by Edith Thorpe RN, Office Visit; Refill Quantity : 0; Not Available Not Available Not Available [place]-3 Fish Oil active Recorded 11/22/19 09 1:35PM by Edith Thorpe RN, Office Visit; Not Available Not Available Not Available Vitals Date Recorded Body height Body mass index (BMI) Body weight Heart rate Systolic And Diastolic Systolic And Diastolic Provider Name and Address Organization Details Last Updated DateTime 5 159.39 cm 25.2 kg/m2 04919.5 2 g 80 /min 170/80 mm[Hg] 180/88 mm[Hg] DEBBIE PORRAS [facility] 5 15:05:20 Social History Question Answer Notes LastModified by [employer] Details LastModified Time Tobacco Smoking Status Never Smoker MAHESH mccollum [facility] 01/21/2023 15:54:29 What Was The Date Of Your Most Recent Tobacco Screening? 07/29/2025 [email or web address] Information not available 07/29/2025 Sex: Unknown Functional Status Question Answer Note LastModified by [employer] Details LastModified Time Do you use any illicit or recreational drugs? No Information not available 01/21/2023 What is your level of alcohol consumption? None [email or web address] Information not available 01/21/2023 Mental Status None [...] adjuvanted, quadrivalent, PF 3 completed Not Available [facility] 07/29/2025 14:34:09 COVID-19, mRNA, LNP-S, PF, kashif-sucrose, 30 mcg/0.3 mL 3 completed Not Available [facility] 07/29/2025 14:34:09 Influenza, high-dose, trivalent, PF 4 completed Not Available [facility] 07/29/2025 14:34:09 COVID-19, mRNA, LNP-S, PF, kashif-sucrose, 30 mcg/0.3 mL 4 completed Not Available [facility] 07/29/2025 14:34:09 COVID-19, mRNA, LNP-S, PF, kashif-sucrose, 30 mcg/0.3 mL 5 completed Not Available [facility] 07/29/2025 14:34:09 Influenza, split virus, trivalent, PF 5 completed Not Available [facility] 07/29/2025 14:34:09 Influenza, high-dose, quadrivalent, PF 2 [facility] 01/21/2023 15:53:42 COVID-19, mRNA, LNP-S, PF, 30 mcg/0.3 mL dose 1 [facility] 01/21/2023 15:53:42 COVID-19, mRNA, LNP-S, PF, 30 mcg/0.3 mL dose 1 [facility] 01/21/2023 15:53:42 COVID-19, mRNA, LNP-S, PF, 30 mcg/0.3 mL dose 1 [facility] 01/21/2023 15:53:42 COVID-19, mRNA, LNP-S, PF, 30 mcg/0.3 mL dose, kashif-sucrose 2 completed [facility] 01/21/2023 15:53:42 COVID-19, mRNA, LNP-S, bivalent, PF, 30 mcg/0.3 mL dose 2 completed MAHESH mccollum, [facility] 01/21/2023 15:53:42 Pneumococcal conjugate PCV 13 0 completed MAHESH mccollum, [facility] 01/21/2023 15:53:42 Influenza, high-dose, trivalent, PF 7 completed MAHESH MONTALVO null, [facility] 01/21/2023 15:53:42 Influenza, high-dose, trivalent, PF 6 completed MAHESH mccollum, [facility] 01/21/2023 15:53:42 Influenza, high-dose, trivalent, PF 9 completed MAHESH mccollum, [facility] 01/21/2023 15:53:42 Influenza, high-dose, trivalent, PF 8 completed MAHESH mccollum, [facility] 01/21/2023 15:53:42 Influenza, split virus, trivalent, preservative 4 [facility] 01/21/2023 15:53:42 Influenza, split virus, trivalent, PF 5 completed MAHESH MONTALVO null, [facility] 01/21/2023 15:53:42 Influenza, split virus, quadrivalent, PF 1 completed MAHESH MONTALVO null, [facility] 01/21/2023 15:53:42 Influenza, split virus, trivalent, preservative 2 completed Not Available [facility] 03/22/2023 02:17:51 Influenza, split virus, trivalent, preservative 1 completed Not Available [facility] 03/22/2023 02:17:51 Past Encounters Encounter ID Performer Location Encounter Start Date Encounter Closed Date Diagnosis/Indication Diagnosis SNOMED-CT Code Diagnosis ICD10 Code Diagnosis IMO Codes Diagnosis Note [id number] Lencho Sanchez MD [facility] ([facility]) [address] [place] [address] 07/29/2025 14:33:00 07/29/2025 15:43:47 Generalized anxiety disorder 71928634 F41.1 A little added stress as a close friend this AM. Bursitis o f right shoulder 0894144059 18275 M75.51 738777 Doing much better. Osteopenia 546505377 M85 .80 Hyperlipidemia 41819245 E78.5 Essential hypertension 15737509 I10 BP elevated a little due to stress. She will monitor this at home and let us know if it remains high. Health Concerns Section Related Observation LastModified by Organization Detai ls LastModified Time None Recorded Concern Status LastModified by Organization Details LastModified Time None Recorded Payers Encounter Date Sequence Insurance Name Policy Number Policy Roberts Covered Member ID Roberts Member ID Guarantor Name 07/29/2025 1 [facility] (MEDICARE REPLACEMENT/A DVANTAGE - HMO) [id number] Nirmala Rico [id number] Nirmala Rico Notes Date Note Type Note Provider Name and Address Organization Details Recorded Time 5 text/html HyperlipidemiaReported by PatientHPIFor adherence to treatment plan, patient reportstakes medications as prescribed. Hypertension IM/FMReported by PatientHPIFor quality, patient reportshere for check-up. For alleviating factors, patient reportsmedication. For associated symptoms, patient reportsno shortness of breath,no fatigue,no palpitations,no decline in exercise capacity, andexertional dyspnea. Lencho Sanchez MD [address] [place] [address], [phone], [facility], [place] 07/29/2025 15:21:17 OBGyn Episode No OBEpisode recorded.
--- OUTSIDE RECORDS SUMMARY | 2025-08-08 06:48 | XMS_ITS | Continuity of Care Document ---
Author Organization [facility], [facility], [facility] ([facility]) Address [address] [place] [address] Care Team Providers Care Perinatal Instructor Name Role Phone LENCHO SANCHEZ Primary Care [...] major joint or bursa (PROC) [id number], [address] [place] [address] 1, [place], [address], 05/30/2025 16:36:05 Surgeries None recorded . Imaging None recorded . Medication Orders betameth asone acetate and sodium phos 6 mg/mL suspensi on for injectio n 2024 025 [email or web address] Not available 07/29/2025 15:02:01 Patient TargetsNo targets recorded. Patient InstructionsNo instructions recorded. Reason for Referral None Reported. Problems Name Problem SNOMED Code Status Onset Date Resolution Date Notes Provider Name and Address Organization Details Recorded Time Osteopenia 929480486 Active 2021 Osteope sandra; Hips (BMD 2001).; 022 1:17PM by Mahesh Montalvo, Office Visit; Promote d; acuity set as *; MAHESH mccollum, [facility] 12:50:58 Hyperlipid emia 67165207 Active [address] [facility] 12:51:05 Labyrinthi tis 21147833 Active 2022 [facility] MONTALVO [facility] 12:50:58 Generalize d anxiety disorder 12700289 Active 2023 [facility] MONTALVO [facility] 12:50:58 Actinic keratosis 592074293 Active 2023 [facility] MONTALVO [facility] 12:50:58 Essential hypertensi on 41875213 Active 2024 [facility] ADRY [facility] 12:50:58 Bursitis of right shoulder 4801441789747 07 Active 2024 Lencho Sanchez MD [address] [place] [phone], [facility] 15:44:38 Dysfunctio n of right eustachian tube 2018879162352 101 Active 2024 Rubin Lockett MD [address] [place] [phone], [facility] 13:58:37 Problem Notes None recorded. Procedures Surgical History Date Name Laterality Status Provider Name and Address Organization Details Recorded Time 5 Joint Inj Beta-shoulde r, hip, knee completed Lencho Sanchez MD [address] [place] [phone], [facility] 05/30/2025 12:33:15 Cerumen Removal-Inst rumentation completed BRAYDON OSUNA [address] [place], [address], [facility] 02/23/2025 16:19:42 Joint Inj Beta-shoulde r, hip, knee completed Lencho Sanchez MD [address] [place], [phone], [facility], LN[facility] 01/26/2025 15:45:27 Imaging Results None recorded. Procedure [...] 0; Not Available Not Available Not Available [place]-3 Fish Oil active Recorded 11/22/19 09 1:35PM by Edith Thorpe RN, Office Visit; Not Available Not Available Not Available Vitals Date Recorded Body height Body mass index (BMI) Body weight Oxygen saturation Heart rate Systolic And Diastolic Provider Name and Address Organization Details Last Updated DateTime 5 159.39 cm 25 kg/m2 89051.9 3 g 93 % 86 /min 132/60 mm[Hg] MAHESH MONTALVO [facility] 5 11:55:28 Social History Question Answer Notes LastModified by Organizat ion Details LastModified Time Tobacco Smoking Status Never Smoker MAHESH MONTALVO [facility] 01/21/2023 15:54:29 What Was The Date Of Your Most Recent Tobacco Screening? 07/29/2025 [email or web address] Information not available 07/29/2025 Sex: Unknown Functional Status Question Answer Note LastModified by Organizat ion Details LastModified Time Do you use any illicit or recreational drugs? No [email or web address] Information not available 01/21/2023 What is your level of alcohol consumption? None [email or web address] Information not available 01/21/2023 Mental Status None [...] adjuvanted, quadrivalent, PF 3 completed Not Available [facility] 07/29/2025 14:34:09 COVID-19, mRNA, LNP-S, PF, kashif-sucrose, 30 mcg/0.3 mL 3 completed Not Available [facility] 07/29/2025 14:34:09 Influenza, high-dose, trivalent, PF 4 completed Not Available [facility] 07/29/2025 14:34:09 COVID-19, mRNA, LNP-S, PF, kashif-sucrose, 30 mcg/0.3 mL 4 completed Not Available [facility] 07/29/2025 14:34:09 COVID-19, mRNA, LNP-S, PF, kashif-sucrose, 30 mcg/0.3 mL 5 completed Not Available [facility] 07/29/2025 14:34:09 Influenza, split virus, trivalent, PF 5 completed Not Available [facility] 07/29/2025 14:34:09 Influenza, high-dose, quadrivalent, PF 2 [facility] 01/21/2023 15:53:42 COVID-19, mRNA, LNP-S, PF, 30 mcg/0.3 mL dose 1 completed [facility] 01/21/2023 15:53:42 COVID-19, mRNA, LNP-S, PF, 30 mcg/0.3 mL dose 1 completed MAHESH mccollum [facility] 01/21/2023 15:53:42 COVID-19, mRNA, LNP-S, PF, 30 mcg/0.3 mL dose 1 completed MAHESH MONTALVO null, [facility] 01/21/2023 15:53:42 COVID-19, mRNA, LNP-S, PF, 30 mcg/0.3 mL dose, kashif-sucrose 2 completed MAHESH MONTALVO null, [facility] 01/21/2023 15:53:42 COVID-19, mRNA, LNP-S, bivalent, PF, 30 mcg/0.3 mL dose 2 completed MAHESH MONTALVO null, [facility] 01/21/2023 15:53:42 Pneumococcal conjugate PCV 13 0 completed MAHESH PAEZRIS null, [facility] 01/21/2023 15:53:42 Influenza, high-dose, trivalent, PF 7 completed MAHESH MONTALVO null, [facility] 01/21/2023 15:53:42 Influenza, high-dose, trivalent, PF 6 completed MAHESH PAEZRIS null, [facility] 01/21/2023 15:53:42 Influenza, high-dose, trivalent, PF 9 completed MAHESH MONTALVO null, [facility] 01/21/2023 15:53:42 Influenza, high-dose, trivalent, PF 8 completed MAHESH MONTALVO null, [facility] 01/21/2023 15:53:42 Influenza, split virus, trivalent, preservative 4 completed MAHESH MONTALVO null, [facility] 01/21/2023 15:53:42 Influenza, split virus, trivalent, PF 5 completed MAHESH MONTALVO null, [facility] 01/21/2023 15:53:42 Influenza, split virus, quadrivalent, PF 1 completed MAHESH mccollum [facility] 01/21/2023 15:53:42 Influenza, split virus, trivalent, preservative 2 completed Not Available [facility] 03/22/2023 02:17:51 Influenza, split virus, trivalent, preservative 1 completed Not [facility] 03/22/2023 02:17:51 Past Encounters Encounter ID Performer Location Encounter Start Date Encounter Closed Date Diagnosis/Indication Diagnosis SNOMED-CT Code Diagnosis ICD10 Code Diagnosis IMO Codes Diagnosis Note [id number] Lencho Sanchez MD [facility] ([facility]) [address] [place] [address] 05/30/2025 11:20:04 05/30/2025 12:34:35 Bursitis of right shoulder 0428362564 42246 M75.51 734470 Health Concerns Section Related Observation LastModified by Organization Detai ls LastModified Time None Recorded Concern Status LastModified by Organization Details LastModified Time None Recorded Payers Encounter Date Sequence Insurance Name Policy Number Policy Roberts Covered Member ID Roberts Member ID Guarantor Name 05/30/2025 1 [facility] (MEDICARE REPLACEMENT/A DVANTAGE - HMO) [id number] Nirmala Rico [id number] Nirmala Rico Notes Date Note Type Note Provider Name and Address Organization Details Recorded Time 05/30/2025 text/html Still having right shoulder pain. Lencho Sanchez MD [address] [place] [address], [phone], [facility] 05/30/2025 12:34:12 OBGyn Episode No OBEpisode recorded.
[2025-08-08 06:56] LABS: Hematocrit 42.8 % (36-47); Hemoglobin 14.00 g/dL (11.27-16.99); Mean Corpuscular HGB Conc 32.7 g/dL (30-55); Mean Corpuscular Hemoglobin 28.6 pg (27-33); Mean Corpuscular Volume 87.3 fl (85-98); Nucleated Red Blood Cells % 0 %; Platelet Count 306 10^3/cmm (157-399); Red Blood Count 4.90 10^6/uL (3.85-5.65); White Blood Count 9.42 10^3/uL (3.29-11.43)
[2025-08-08 07:07] LABS: INR 0.94 (0.8-1.2); Prothrombin Time 13.30 SECONDS (12.1-14.9)
[2025-08-08 07:08] LABS: Partial Thromboplastin Time 28.1 SECONDS (23.9-36.7)
[2025-08-08 07:17] LABS: Alanine Aminotransferase 10 U/L (0-33); Albumin Level 4.4 g/dL (3.5-5.2); Alkaline Phosphatase 81 U/L (35-105); Anion Gap 12.7 (5-19); Aspartate Amino Transferase 19 U/L (0-32); Blood Urea Nitrogen 11 mg/dL (8-23); Calcium 9.8 mg/dL (8.5-10.5); Carbon Dioxide 30 mmol/L (22-29); Chloride 101 mmol/L (98-107); Globulin 3.6 g/dL (1.3-4.6); Glucose 103 mg/dL (65-115); Osmolality Calculated 290 mOsm/kg (285-295); Potassium 3.7 mmol/L (3.5-5.1); Sodium 140 mmol/L (136-145); Total Protein 8.0 g/dL (6.6-8.7)
[2025-08-08] MEDS: hyDRALAzine 20 mg/mL INJ 1 mL 10 MG IVP (07:17)
[2025-08-08 07:19] VITALS: BP 188/79; PULSE 79; RESP 18; O2SAT 99
[2025-08-08 07:32] VITALS: BP 185/73
[2025-08-08 07:37] VITALS: BP 185/73; PULSE 76; O2SAT 98
[2025-08-08 07:39] LABS: PCP Screen Urine Negative (Negative)
[2025-08-08 07:49] LABS: Glucose Urine UA Negative (Normal); Nitrate Urine Negative (Negative); Specific Gravity, Urine 1.011 (1.005-1.030)
[2025-08-08 07:51] LABS: Add Urine Microscopic? YES
== END 2025-08-08 07:38 | disposition home or self-care (01) ==
PROVIDERS: Emergency Provider Emergency Medicine; PCP Family Medicine
DX: R20.2 Paresthesia of skin (principal); Z79.82 Long term (current) use of aspirin
CPT/HCPCS: 36416; 70450; 80053; 80306; 81001; 82962; 85025; 85610; 85730; 93005; 96374; 99285; J0360